=== PATIENT | female | born 1995 | race African-American/Black ===

== ENCOUNTER 2017-12-09 15:56 | Emergency (ER) | payer SELFPAY ==
[2017-12-09 16:16] LABS: URINE HCG POC HCG POSITIVE (Negative)
[2017-12-09 16:59] LABS: ADD MAN DIFF? NO
[2017-12-09 17:06] LABS: BASO % 0 % (0-3); EOS % 1 % (0-3); HEMATOCRIT 36.5 % (36.0-47.0); HEMOGLOBIN 12.3 g/dL (12.0-15.5); LYMPH # 0.9 x10^3/uL (1.0-4.8); LYMPH % 15 % (24-48); MEAN CORPUSCULAR HEMOGLOBIN 30 pg (25-35); MEAN CORPUSCULAR HGB CONC 34 g/dL (31-37); MEAN CORPUSCULAR VOLUME 88 fL (79-100); MONO # 0.7 x10^3/uL (0.0-1.1); MONO % 11 % (0-9); NEUT # 4.4 x10^3uL (1.8-7.7); NEUT % 73 % (31-73); PLATELET COUNT 204 x10^3/uL (140-400); RED BLOOD COUNT 4.16 x10^6/uL (3.50-5.40); RED CELL DISTRIBUTION WIDTH 12.3 % (11.5-14.5); WHITE BLOOD COUNT 5.9 x10^3/uL (4.0-11.0)
[2017-12-09 17:17] LABS: ANION GAP 12 (6-14); BLOOD UREA NITROGEN 9 mg/dL (7-20); CALCIUM 8.6 mg/dL (8.5-10.1); CARBON DIOXIDE 23 mmol/L (21-32); CHLORIDE 101 mmol/L (98-107); CREATININE 0.6 mg/dL (0.6-1.0); GFR 154.2; GLUCOSE 93 mg/dL (70-99); POTASSIUM 3.6 mmol/L (3.5-5.1); SODIUM 136 mmol/L (136-145)
[2017-12-09] MEDS: FAMOTIDINE 20 MG/2 ML VIAL IVP (17:34)
== END 2017-12-09 19:05 | disposition home or self-care (01) ==
LOC: ER 15:56
DX: O20.0 Threatened abortion (principal); Z3A.01 Less than 8 weeks gestation of pregnancy; Z87.730 Personal history of (corrected) cleft lip and palate; Z88.1 Allergy status to other antibiotic agents
CPT/HCPCS: 36415; 76801; 80048; 81025; 84702; 85025; 86900; 86901; 96374; 99285-25; S0028